=== PATIENT | female | born 1980 | race Caucasian/White ===

== ENCOUNTER 2019-01-05 21:25 | Emergency (ER) | payer BC ==
[2019-01-05] MEDS: LORAZEPAM 2 MG INJ IV (21:55)
== END 2019-01-05 22:36 | disposition home or self-care (01) ==
LOC: E/R 21:25
DX: F41.1 Generalized anxiety disorder (principal); E10.9 Type 1 diabetes mellitus without complications
CPT/HCPCS: 82962; 93005; 96374; 99284-25